=== PATIENT | female | born 1995 | race Two or more races ===

== ENCOUNTER 2024-07-10 00:12 | Emergency (ER) | payer MEDICAID, OTHER ==
[~2024-07-10] VITALS: Ht 160 cm; Wt 65.9 kg
[2024-07-10] MEDS: ONDANSETRON HCL 4 MG/2 ML VIAL IV ONE ×2 (00:30→02:54)
[2024-07-10] MEDS: MORPHINE SULFATE 4 MG/ML SYR/VIAL IV ONE ×2 (00:31→02:55)
[2024-07-10] MEDS: TETANUS-DIPTH-ACEL PERTUSSIS 0.5ML SYR Tdap IM ONE (00:32)
[2024-07-10] MEDS: IOHEXOL 350 MG/ML 100ML IJ ONE (00:51)
[2024-07-10] MEDS: LIDOCAINE 1% HCL (LOCAL ANESTH.) INJ 20ML MDV ONE (02:23)
[2024-07-10 03:26] VITALS: BP 121/87; TEMP 98.7
[2024-07-10 03:30] VITALS: PULSE 109; RESP 18; O2SAT 98
[2024-07-10] MEDS ORDERED: CEPH500T PO (04:06)
[2024-07-10] MEDS ORDERED: HYDR-4902 PO (04:06)
[2024-07-10] MEDS ORDERED: IBUP-1454 PO (04:06)
[2024-07-10] MEDS: BACITRACIN TOP OINT 1 UD PKG TOP ONE (04:08)
== END 2024-07-10 04:23 | disposition home or self-care (01) ==
LOC: ER 00:12
DX: S81.811A Laceration without foreign body, right lower leg, initial encounter (principal); V86.99XA Unspecified occupant of other special all-terrain or other off-road motor vehicle injured in nontraffic accident, initial encounter; Y93.89 Activity, other specified; Y92.89 Other specified places as the place of occurrence of the external cause; Y99.8 Other external cause status
CPT/HCPCS: 12035; 73560; 73701; 90471; 90715; 96374; 96375; 96376; 99285; J2270; J2405; Q9967; J2001